=== PATIENT | female | born 1990 | race Caucasian/White ===

== ENCOUNTER 2020-03-10 12:39 | Observation (INO) | payer MEDICAID ==
[~2020-03-10] VITALS: Ht 152.4 cm; Wt 122.5 kg
[2020-03-10 13:23] LABS: BASOPHILS % 0.3 % (0.0-2.0); EOSINOPHILS % 0.5 % (0.0-5.0); HEMATOCRIT. 39.2 % (36.0-48.0); HEMOGLOBIN. 13.3 g/dL (12.0-16.0); MEAN CORPUSCULAR HEMOGLOBIN 29.6 pg (28.0-32.0); MEAN CORPUSCULAR VOLUME 87.2 fL (81.0-99.0); MEAN PLATELET VOLUME 9.4 fl (7.4-10.4); MONOCYTES % 5.8 % (2.0-8.0); NEUTROPHILS % 79.4 % (40.0-76.0); PLATELET 233 x1000/uL (130-400); RED CELL DISTRIBUTION WIDTH 15.1 % (11.6-14.6)
[2020-03-10 13:29] LABS: CLARITY URINE CLOUDY (CLEAR); COLOR URINE DARK YELLOW (YELLOW); KETONES URINE 1+ (NEGATIVE); LEUKOCYTE ESTERASE URINE 2+ (NEGATIVE); NITRITE URINE NEGATIVE (NEGATIVE); OCCULT BLOOD URINE NEGATIVE (NEGATIVE); PH URINE 5.5 (4.5-8.0); PROTEIN URINE NEGATIVE (NEGATIVE)
[2020-03-10 13:31] LABS: CHLORIDE 107 mEq/L (98-107)
[2020-03-10 13:38] LABS: D-DIMER 1.72 mg/L FEU (<0.50); INR 0.9; PARTIAL THROMBOPLASTIN TIME 29.5 sec (23.4-31.0)
== END 2020-03-10 14:35 | disposition home or self-care (01) ==
LOC: 8 EST LDRP 12:39
PROVIDERS: ADMIT Obstetrics & Gynecology; ATTEND Obstetrics & Gynecology
DX: O13.3 Gestational [pregnancy-induced] hypertension without significant proteinuria, third trimester (principal); Z20.828 Contact with and (suspected) exposure to other viral communicable diseases; Z3A.38 38 weeks gestation of pregnancy
CPT/HCPCS: 36415; 59025; 80053; 81003; 84550; 85025; 85379; 85384; 85610; 85730; 87635; G0378; 99281

== ENCOUNTER 2020-03-15 06:15 | Inpatient (IN) | payer MEDICAID ==
[~2020-03-15] VITALS: Ht 152.4 cm; Wt 122.5 kg
[2020-03-15] MEDS ORDERED: LACTATED RINGERS 1,000 ML IV SCH (06:39)
[2020-03-15] MEDS ORDERED: CARBOPROST TROMETHAMINE 250 MCG/ML AMPUL IM PRN (06:45)
[2020-03-15] MEDS ORDERED: METHYLERGONOVINE MALEATE 0.2 MG/ML IM PRN (06:45)
[2020-03-15] MEDS ORDERED: PNV1TABL76 PO (06:47)
[2020-03-15] MEDS ORDERED: FERR325T6 PO (06:47)
[2020-03-15] MEDS ORDERED: FISH GT (06:47)
[2020-03-15 07:24] LABS: CLARITY URINE CLEAR (CLEAR); COLOR URINE YELLOW (YELLOW); KETONES URINE NEGATIVE (NEGATIVE); LEUKOCYTE ESTERASE URINE 1+ (NEGATIVE); NITRITE URINE NEGATIVE (NEGATIVE); OCCULT BLOOD URINE NEGATIVE (NEGATIVE); PROTEIN URINE NEGATIVE (NEGATIVE)
[2020-03-15 07:26] LABS: BASOPHILS % 0.3 % (0.0-2.0); EOSINOPHILS % 0.7 % (0.0-5.0); HEMATOCRIT. 38.4 % (36.0-48.0); LYMPHOCYTES % 17.4 % (20.0-50.0); MEAN CORPUSCULAR HEMOGLOBIN 29.5 pg (28.0-32.0); MEAN CORPUSCULAR VOLUME 87.3 fL (81.0-99.0); MEAN PLATELET VOLUME 9.8 fl (7.4-10.4); MONOCYTES % 5.6 % (2.0-8.0); PLATELET 196 x1000/uL (130-400); RED CELL DISTRIBUTION WIDTH 15.1 % (11.6-14.6)
[2020-03-15] MEDS ORDERED: FENTANYL CITRATE/PF 50MCG/ML 2ML VIAL ONE (07:27)
[2020-03-15] MEDS ORDERED: METOCLOPRAMIDE HCL 10MG/2ML VIAL ONE (07:27)
[2020-03-15] MEDS ORDERED: MORPHINE SULFATE/PF 1MG/ML 10ML AMP ONE (07:27)
[2020-03-15] MEDS ORDERED: PHENYLEPHRINE HCL 10 MG/ML 1ML (IV VIAL) IV ONE (07:27)
[2020-03-15] MEDS ORDERED: GLYCOPYRROLATE 0.2 MG/ML 2ML VIAL ONE (07:27)
[2020-03-15] MEDS ORDERED: EPHEDRINE SULFATE 50MG/ML VIAL ONE (07:27)
[2020-03-15] MEDS ORDERED: OXYTOCIN 10 UNITS/ML 1ML ONE (07:27)
[2020-03-15] MEDS ORDERED: ONDANSETRON HCL 4MG/2ML INJ ONE (07:27)
[2020-03-15] MEDS ORDERED: CEFAZOLIN SODIUM 1000MG/VIAL ONE (07:27)
[2020-03-15] MEDS ORDERED: CITRIC ACID/SODIUM CITRATE SOLN 30ML UDC PO NR (07:30)
[2020-03-15 07:38] LABS: INR 0.9; PARTIAL THROMBOPLASTIN TIME 28.8 sec (23.4-31.0); PROTHROMBIN TIME 9.9 sec (9.6-11.0)
[2020-03-15] MEDS ORDERED: SODIUM CHLORIDE 0.9% 10ML VIAL ONE (08:02)
[2020-03-15 08:04] LABS: HEPATITIS B SURFACE ANTIGEN NEGATIVE
[2020-03-15 08:05] LABS: *AMPHETAMINES SCREEN URINE NEGATIVE (NEGATIVE); *BARBITURATES SCREEN URINE NEGATIVE (NEGATIVE); *BENZODIAZEPINES SCREEN URINE NEGATIVE (NEGATIVE); *COCAINE SCREEN URINE NEGATIVE (NEGATIVE)
[2020-03-15 08:06] LABS: CANNABINOID URINE SCREEN NEGATIVE (NEGATIVE); METHADONE URINE SCREEN NEGATIVE (NEGATIVE); OPIATES URINE SCREEN NEGATIVE (NEGATIVE); PHENCYCLIDINE URINE SCREEN NEGATIVE (NEGATIVE)
[2020-03-15] MEDS ORDERED: NALOXONE HCL 0.4 MG/ML 1ML VIAL IV PRN (11:45)
[2020-03-15] MEDS ORDERED: DIPHENHYDRAMINE 50MG/ML VIAL IV PRN (11:45)
[2020-03-15] MEDS ORDERED: BUTORPHANOL TARTRATE 2 MG/ML VIAL IV PRN (11:45)
[2020-03-15] MEDS: DEXT 5%/LR + PITOCIN 20UNITS/L 1,000 ML IV SCH ×2 (11:46→13:31)
[2020-03-15] MEDS ORDERED: KETOROLAC 30MG/ML VIAL IV SCH (12:00)
[2020-03-15] MEDS ORDERED: DEXT 5%/LR + PITOCIN 20UNITS/L 1,000 ML IV SCH (13:36)
[2020-03-15 13:45] VITALS: BP 122/64
[2020-03-15] MEDS ORDERED: HYDROCODONE/ACETAMINOPHEN 5/325MG TABLET PO PRN (13:45)
[2020-03-15] MEDS ORDERED: BISACODYL 10MG SUPP PR PRN (13:45)
[2020-03-15] MEDS ORDERED: ONDANSETRON HCL 4MG/2ML INJ IV PRN (13:45)
[2020-03-15] MEDS ORDERED: HEMORRHOIDAL SUPP PR PRN (13:45)
[2020-03-15] MEDS ORDERED: DIPHENHYDRAMINE 25MG CAPSULE PO PRN ×2 (13:45→21:00)
[2020-03-15] MEDS ORDERED: IBUPROFEN 400MG TABLET PO PRN (13:45)
[2020-03-15] MEDS ORDERED: IBUPROFEN 800MG TABLET PO PRN (13:45)
[2020-03-15 14:15] VITALS: BP 117/67
[2020-03-15] MEDS: SIMETHICONE 80MG TABLET CHEW PO SCH (18:05)
[2020-03-15] MEDS ORDERED: DOCUSATE SODIUM 100MG CAPSULE PO SCH (21:00)
[2020-03-15 22:00] VITALS: BP 115/71
[2020-03-16 05:15] VITALS: BP 119/70
[2020-03-16 06:27] LABS: BASOPHILS % 0.3 % (0.0-2.0); EOSINOPHILS % 1.7 % (0.0-5.0); HEMATOCRIT. 33.8 % (36.0-48.0); HEMOGLOBIN. 11.5 g/dL (12.0-16.0); LYMPHOCYTES % 10.5 % (20.0-50.0); MEAN CORPUSCULAR HEMOGLOBIN 29.8 pg (28.0-32.0); MEAN CORPUSCULAR VOLUME 87.8 fL (81.0-99.0); MEAN PLATELET VOLUME 9.8 fl (7.4-10.4); NEUTROPHILS % 81.5 % (40.0-76.0); PLATELET 174 x1000/uL (130-400); RED BLOOD CELL COUNT 3.85 mill/uL (4.2-5.4)
[2020-03-16 08:00] VITALS: BP 132/84
[2020-03-16] MEDS: FERROUS SULFATE 325MG TABLET PO SCH ×3 (08:46→17:51)
[2020-03-16] MEDS: SIMETHICONE 80MG TABLET CHEW PO SCH ×4 (08:46→21:28)
[2020-03-16 16:30] VITALS: BP 130/90
[2020-03-16 21:00] VITALS: BP 134/83
[2020-03-17 04:10] VITALS: BP 113/69
[2020-03-17 08:00] VITALS: BP 132/89
[2020-03-17] MEDS: FERROUS SULFATE 325MG TABLET PO SCH (08:48)
[2020-03-17] MEDS: SIMETHICONE 80MG TABLET CHEW PO SCH (08:48)
== END 2020-03-17 11:30 | disposition home or self-care (01) | DRG 540 ==
LOC: 8 EST LDRP 06:15 → 8EST 13:40
PROVIDERS: ADMIT Obstetrics & Gynecology; ATTEND Obstetrics & Gynecology
PROC: 10D00Z1 Extraction of Products of Conception, Low, Open Approach (ICD-10-PCS; principal; 2020-03-15)
DX: O34.211 Maternal care for low transverse scar from previous cesarean delivery (principal); O10.92 Unspecified pre-existing hypertension complicating childbirth; O99.214 Obesity complicating childbirth; Z37.0 Single live birth; Z3A.39 39 weeks gestation of pregnancy
CPT/HCPCS: 36415; 80305; 81003; 85025; 86592; 86703; 86762; 86850; 86900; 86920; 87340; 88307; J0690; J2274; J2370; J2405; J2590; J2765; J3010; J3490